=== PATIENT | female | born 1960 | race Caucasian/White ===

== ENCOUNTER 2018-12-31 05:33 | Inpatient (IN) | payer OTHER ==
[~2018-12-31 05:33] MED LIST: Gabapentin 300 MG Cap PO ONE
[2018-12-31] MEDS ORDERED: Dextrose 5%-Lactated Ringers 1,000 ML IV SCH ×2 (06:00→11:45)
[2018-12-31] MEDS ORDERED: Scopolamine 1.5 MG Transdermal Patch TOP ONE (06:00)
[2018-12-31] MEDS ORDERED: Celecoxib 200 MG Cap PO ONE (06:00)
[2018-12-31] MEDS ORDERED: cefOXitin 2 GM in Sodium Chloride 0.9% 50 ML IV ONE (06:00)
[2018-12-31] MEDS ORDERED: Acetaminophen 500 MG Tab PO ONE (06:00)
[2018-12-31] MEDS ORDERED: cefOXitin 2 GM Vial ONE (06:55)
[2018-12-31] MEDS ORDERED: Propofol 200 MG/20 ML SDV ONE (07:05)
[2018-12-31] MEDS ORDERED: Ondansetron 4 MG/2 ML SDV ONE (07:05)
[2018-12-31] MEDS ORDERED: fentaNYL 250 MCG/5 ML SDV ONE ×2 (07:05→07:43)
[2018-12-31] MEDS ORDERED: Neostigmine Methylsulfate 1 MG/ML 5 ML Syringe ONE (07:05)
[2018-12-31] MEDS ORDERED: Succinylcholine 200 MG/10 ML MDV ONE (07:05)
[2018-12-31] MEDS ORDERED: Rocuronium 50 MG/5 ML Vial ONE (07:05)
[2018-12-31] MEDS ORDERED: Dexamethasone 4 MG/ML SDV ONE (07:05)
[2018-12-31] MEDS ORDERED: Glycopyrrolate 0.2 MG/ML 5 ML MDV ONE (07:05)
[2018-12-31] MEDS ORDERED: Lactated Ringers 1,000 ML ONE (07:05)
[2018-12-31] MEDS ORDERED: Ketamine 500 MG/5 ML MDV IV SCH (07:45)
[2018-12-31] MEDS ORDERED: Ketamine 50 MG in Sodium Chloride 0.9% 49.5 ML IV SCH (07:45)
[2018-12-31] MEDS ORDERED: Lidocaine 2% 100 MG/5 ML Syringe IVPUSH SCH (08:00)
[2018-12-31] MEDS ORDERED: hydrOXYzine HCl 100 MG/2 ML SDV IM ONE (09:45)
[2018-12-31] MEDS ORDERED: fentaNYL 100 MCG/2 ML SDV ONE (10:56)
[2018-12-31] MEDS ORDERED: HYDROmorphone 0.5 MG/0.5 ML Syringe IVPUSH PRN (11:35)
[2018-12-31] MEDS ORDERED: diphenhydrAMINE 50 MG/ML SDV IVPUSH PRN (11:35)
[2018-12-31] MEDS ORDERED: Acetaminophen Soln 650 MG/20.3 ML UD Cup PO SCH (11:35)
[2018-12-31] MEDS ORDERED: Labetalol 20 MG/4 ML Syringe IVPUSH PRN (11:35)
[2018-12-31] MEDS ORDERED: Metoclopramide 10 MG/2 ML SDV IVPUSH PRN (11:35)
[2018-12-31] MEDS ORDERED: Ondansetron 4 MG/2 ML SDV IVPUSH PRN (11:35)
[2018-12-31] MEDS ORDERED: hydrOXYzine HCl 100 MG/2 ML SDV IM PRN (11:35)
[2018-12-31] MEDS ORDERED: Acetaminophen 325 MG Tab PO SCH (11:35)
[2018-12-31] MEDS ORDERED: HYDROmorphone 1 MG/ML Syringe IV PRN (11:35)
[2018-12-31] MEDS ORDERED: Acetaminophen 325 MG Tab PO PRN (12:00)
[2018-12-31] MEDS: Lidocaine 0.4%/D5W 2 GM/500 ML BAG IV SCH (12:03)
[2018-12-31] MEDS: Lactated Ringers 1,000 ML IV SCH ×3 (12:07→21:35)
[2018-12-31] MEDS: Gabapentin 250 MG/5 ML Solution ML 470 ML Bottle PO SCH ×2 (15:41→20:23)
[2018-12-31] MEDS: Heparin Sodium 5,000 Units/ML Vial SUBCUT SCH (15:41)
[2018-12-31] MEDS: cefOXitin 2 GM in Sodium Chloride 0.9% 50 ML IV SCH ×2 (15:42→21:24)
[2018-12-31] MEDS ORDERED: Pantoprazole 40 MG Vial IVPUSH SCH (16:00)
[2018-12-31] MEDS ORDERED: MVI, Adult with Vitamin K 10 ML, Thiamine 200 MG, Chromium/Copper/Mang/Selen/Zn 1 ML in... IV SCH ×4 (16:00)
[2018-12-31] MEDS: Acetaminophen Soln 650 MG/20.3 ML UD Cup PO SCH (17:12)
[2018-12-31] MEDS: Insulin Lispro 100 Unit/ML 3 ML KwikPen SUBCUT PRN ×2 (17:12→21:24)
[2019-01-01] MEDS: Acetaminophen Soln 650 MG/20.3 ML UD Cup PO SCH ×5 (00:09→23:40)
[2019-01-01] MEDS ORDERED: Iopamidol 510 MG/ML 50 ML SDV PO ONE (02:59)
[2019-01-01] MEDS: cefOXitin 2 GM in Sodium Chloride 0.9% 50 ML IV SCH ×2 (04:30→09:50)
[2019-01-01] MEDS: Heparin Sodium 5,000 Units/ML Vial SUBCUT SCH ×2 (04:34→15:07)
[2019-01-01] MEDS: Lactated Ringers 1,000 ML IV SCH (08:11)
[2019-01-01] MEDS: Celecoxib 200 MG Cap PO SCH (08:13)
[2019-01-01] MEDS: Gabapentin 250 MG/5 ML Solution ML 470 ML Bottle PO SCH ×3 (08:14→20:36)
[2019-01-01] MEDS: Aspirin 81 MG Tab.EC PO SCH (08:45)
[2019-01-01] MEDS: Losartan 50 MG Tab PO SCH (08:45)
[2019-01-01] MEDS: amLODIPine 5 MG Tab PO SCH (08:45)
[2019-01-01] MEDS: SCOPOLAMINE PATCH CHECK TOP SCH (08:46)
--- NOTE | 2019-01-01 09:59 | CRLCR ---
INDICATION: Evaluate Tamanna-en-Y. TECHNIQUE: A 30 mL Isovue-300 swallowed by the patient. Three images of the abdomen performed immediate and 15 minute and 25 minute delayed. FINDINGS: On the immediate image, oral contrast is seen in the lower esophagus and opacifying the gastric remnant. Surgical drain is in place. Oral contrast also seen in the Tamanna limb. No extravasation of contrast from the lumen of gastric gist tract. 15 minute delayed radiograph shows contrast advanced into the jejunum in the left upper quadrant. 25 minute delayed demonstrates further advancement of contrast in the jejunum which does not appear dilated. Dictated by Francisco Martinez MD @ Jan 01 2019 9:55AM Signed by Dr. Francisco Martinez @ Jan 01 2019 9:59AM
[2019-01-01] MEDS: Lidocaine 0.4%/D5W 2 GM/500 ML BAG IV SCH (11:19)
[2019-01-01] MEDS ORDERED: MVI, Adult with Vitamin K 10 ML, Thiamine 200 MG, Chromium/Copper/Mang/Selen/Zn 1 ML in... IV SCH ×4 (16:00)
[2019-01-01] MEDS ORDERED: Pantoprazole 40 MG Delayed-Release Granules 1 Packet PO SCH (16:00)
[2019-01-02] MEDS: Lactated Ringers 1,000 ML IV SCH (02:54)
[2019-01-02] MEDS: Heparin Sodium 5,000 Units/ML Vial SUBCUT SCH (03:33)
[2019-01-02] MEDS: Acetaminophen Soln 650 MG/20.3 ML UD Cup PO SCH ×2 (05:00→11:50)
[2019-01-02] MEDS ORDERED: Cyanocobalamin (Vitamin B12) 1,000 MCG/ML SDV IM ONE (09:00)
[2019-01-02] MEDS: Aspirin 81 MG Tab.EC PO SCH (09:20)
[2019-01-02] MEDS: Losartan 50 MG Tab PO SCH (09:20)
[2019-01-02] MEDS: Celecoxib 200 MG Cap PO SCH (09:20)
[2019-01-02] MEDS: Gabapentin 250 MG/5 ML Solution ML 470 ML Bottle PO SCH (09:21)
[2019-01-02] MEDS: SCOPOLAMINE PATCH CHECK TOP SCH (09:21)
[2019-01-02] MEDS: amLODIPine 5 MG Tab PO SCH (09:21)
--- NOTE | 2019-01-03 13:24 | OR ---
DATE OF PROCEDURE: 12/31/2018 SURGEON: Laureano Carpenter MD PREOPERATIVE DIAGNOSIS: Morbid obesity. POSTOPERATIVE DIAGNOSES: 1. Morbid obesity. 2. Marked hepatomegaly. 3. Paraesophageal diaphragmatic hernia. 4. Immobile small bowel requiring small bowel resection for adequate mobility of jejunojejunostomy. 5. Area of gastric devascularization, status post pouch formation. OPERATIVE PROCEDURES: 1. Diagnostic laparoscopy with: a. Laparoscopic Tamanna-en-Y gastric bypass with long limb gastroenterostomy (33006). b. Ross-Cut needle liver biopsy (09215). c. Repair of paraesophageal diaphragmatic hernia (21085). d. Small bowel resection (74885). e. Partial gastrectomy (24418). ANESTHESIA: General. POLE INSPECTOR: Neris Rice PA-C. INDICATIONS FOR PROCEDURE: This 58-year-old female presenting with longstanding morbid obesity and increasingly significant comorbidities, status post previous laparoscopic adjustable band placement, which was removed around 4 years ago. With this, she has had progressive increase in weight, as well as increasing obesity-related comorbidities. Plan is to proceed with a laparoscopic Tamanna-en-Y gastric bypass. Potential risks of procedure including bleeding, infection, leaks from various GI tract closures, problems with bowel obstruction over time, as well as possibility of cardiopulmonary, septic, or hemorrhagic complications leading to were discussed, and the patient wishes to proceed. DETAILS OF PROCEDURE: The patient was taken to the operating room, and after general endotracheal anesthesia was induced, she was placed in a lithotomy position. The abdomen was then prepped and draped. At 15 cm inferior and 5 cm left of the xiphoid process, a transverse incision was made, and the peritoneal cavity entered under direct vision with an Optiview trocar. Peritoneal cavity was inflated to 15 mmHg pressure with CO2. The laparoscope was then inserted. No underlying trocar insertion site injuries were seen. Bilateral transversus abdominis plane blocks were then placed, and 5 additional trocars were placed across the upper and mid abdomen. Initial general exploration was undertaken. This showed marked hepatomegaly with liver volume being roughly 2 to 3 times normal and was grossly fatty infiltrated. Ross-Cut needle biopsy was obtained from the left lobe of the liver. Minimal bleeding from the biopsy sites was controlled with electrocautery. With the patient having previous band placement, we initially addressed the pouch formation. The liver was retracted anteriorly. Some adhesions over the previous area of the band between the stomach and the liver were taken down with Harmonic scalpel. At that point, the patient was noted to have significant paraesophageal diaphragmatic hernia with prolapse of some omentum, along with perigastric fat in a plane anterior to the course of the esophagus. This was reduced at this point with aid of Harmonic scalpel. Peritoneum overlying this was incised and reflected downward and the diaphragmatic hernia then repaired with a series of 0 Ethibond sutures reinforced with PTFE pledgets. The lesser omentum adjacent to the greater curvature was then incised. This allowed dissection behind the stomach at the point roughly 5 cm below the gastroesophageal junction. Initial pouch formation was initiated there with black load SALINAS stapler. Dissection continued from that point toward the angle of His with series of black and purple loads being used to create the pouch. Once the pouch was satisfactorily completed, the tip of it was noted to be somewhat ischemic and some of this was then resected with additional SALINAS black loads and specimen delivered from the field. The anvil of a 25 mm EEA stapler was attached to [place] sump type tube. The latter was brought down through the mouth, taken out through a small opening in the gastric pouch, allowing the anvil likewise to be pulled down to within the gastric pouch. Attention was then taken to the formation of the jejunojejunostomy. The omentum was divided in the midline up to the level of the transverse colon, allowing identification of the small bowel at the ligament of Treitz. Small bowel was then traced out 200 cm distal to that point. The mesentery of the small bowel was then assessed to be quite thick, and it was felt that the jejunostomy with the current configuration would likely be quite tight due to the small bowel. Given this, around 10 cm of the biliopancreatic limb of the small bowel was at that point resected to facilitate mobility of the jejunojejunostomy. The mesentery underneath the bowel to be resected was divided with a SALINAS stapler, as was the bowel itself, and that specimen delivered from the field. With a now somewhat shortened biliopancreatic limb, the jejunostomy was completed with internal firings of the Endo-SALINAS 60 mm stapler. Common opening was then closed transversely with the same stapler and angles anastomosed and mesenteric defect approximated with some 0 Ethibond stitch, along with 4 mL of fibrin sealant. The divided end of the Tamanna limb was then from the mesentery for a few centimeters, which allowed an antecolic position of the Tamanna limb up to the level of the gastric pouch without significant tension. The divided end of the Tamanna limb was then opened and the main body of the EEA stapler passed several centimeters into the lumen of the small bowel, brought up the anvil, and united with it, thus creating the gastrojejunostomy. Upon removal of the stapler, double donuts of mucosa were noted within it. The small bowel was closed off with a vascular staple line. The gastrojejunostomy was reinforced with some 0 Ethibond seromuscular stitch, along with fibrin sealant. A leak test was accomplished with injection of 120 mL of air in the gastric pouch while it was submerged within cefoxitin-containing saline solution. No leaks were identified. A single [place] drain was then taken out through the left lateral trocar site and placed adjacent to the gastrojejunostomy from there up into the splenic fossa. The trocars were then sequentially removed and the peritoneal cavity deflated. Incisions were closed with some 4-0 Vicryl skin stitch, which was also used to affix the drain. The patient was taken to recovery room in satisfactory condition. Physician patient clerical assistant, Neris Rice, played an essential role in assisting in this case, helping to position the patient, retract structures as needed, as well as suturing and cutting sutures when indicated. Her presence improved patient safety and decreased operative time. Laureano Carpenter MD /[id number]
--- NOTE | 2019-01-04 08:27 | PN ---
DATE OF SERVICE: 01/01/2019 The patient is postop day #1 for laparoscopic Tamanna-en-Y gastric bypass along with diaphragmatic hernia repair. Clinically, she has done well overnight. Blood sugars are coming down. I do not think we will need to start any of the anti-diabetic medications. We will go up to a step-2 diet. The upper GI x-ray looked good with rapid emptying through the pouch and then into the small bowel. The plan will be to go up to a step-2 diet today, restart some of her pertinent oral medication and maximize activity and work with pulmonary toilet. Laureano Carpenter MD /[id number]
--- NOTE | 2019-01-04 08:39 | DISCH ---
FINAL DIAGNOSES: 1. Morbid obesity. 2. Marked hepatomegaly. 3. Paraesophageal diaphragmatic hernia. 4. Immobile small bowel mesentery requiring small bowel resection to allow adequate mobility of jejunojejunostomy. 5. Stomach devascularization, status post pouch formation secondary to scarring from previous lap band. 6. History of depression. 7. History of hypertension. 8. History of type 2 diabetes mellitus. 9. Hypercholesterolemia. 10.Elevated liver enzymes: 11.Obstructive sleep apnea. OPERATIVE PROCEDURES: Done on 12/31/2018, diagnostic laparoscopy with: 1. Laparoscopic Tamanna-en-Y gastric bypass with long limb gastroenterostomy. 2. Ross-Cut needle liver biopsy. 3. Repair of paraesophageal diaphragmatic hernia. 4. Small bowel resection to facilitate adequate mobility of the jejunojejunostomy. 5. Partial gastrectomy. SUMMARY: This is a 58-year-old, presenting with long-standing morbid obesity with increasingly significant comorbidities. After preoperative evaluation and discussion, she wished to proceed with a gastric bypass procedure. This was done on the date of admission. The patient is status post previous lap band, and she did have a fair bit of scarring around the stomach, but an adequate pouch was able to be formed. There was an area of devascularization of the pouch from initial construction, which was resected back to the level of adequate blood supply. Postoperatively, no major problems were noted. She had been off antidiabetic medication, specifically off the metformin and Victoza since surgery, and blood sugars were running in the low to mid 100 range, so the issue of her diabetes was trending toward going into remission. Otherwise, the patient was started on a step 2 diet, which she will stay on until the first appointment, which will be with Neris Rice [facility]3], on 01/10/2019 at 11:30. She will be instructed to record the blood sugars on a t.i.d. to q.i.d. basis and bring that log of blood sugars to her first appointment. MEDICATIONS ON DISCHARGE: Will include omeprazole 20 mg daily, which she is instructed to stop after discontinuing the Celebrex, will start on 200 mg p.o. daily. She will be holding the Victoza and metformin. She will continue amlodipine 2.5 mg daily, rosuvastatin 20 mg daily, aspirin 81 mg p.o. daily, and Celebrex 200 mg p.o. daily with the latter being able to be stopped when she feels comfortable off of that. Also, should be on Tylenol 650 mg p.o. q.4 hours p.r.n. pain and a prescription for Dilaudid 2 to 4 mg p.o. q.4 hours p.r.n. pain will be given #30. She is instructed to hold her vitamins and other supplements until after the first appointment.
== END 2019-01-02 12:13 | disposition home or self-care (01) | DRG 621 ==
LOC: JP.SDSSCHI 05:33 → JP.SDS 05:34 → EDSTATUS 09:00 → JP.MS 09:40
PROVIDERS: ADMIT Surgery; ATTEND Surgery
PROC: 0BQT4ZZ Repair Diaphragm, Percutaneous Endoscopic Approach (ICD-10-PCS; principal; 2018-12-31)
PROC: 0D164ZA Bypass Stomach to Jejunum, Percutaneous Endoscopic Approach (ICD-10-PCS; 2018-12-31)
PROC: 0FB24ZX Excision of Left Lobe Liver, Percutaneous Endoscopic Approach, Diagnostic (ICD-10-PCS; 2018-12-31)
PROC: 0DB84ZZ Excision of Small Intestine, Percutaneous Endoscopic Approach (ICD-10-PCS; 2018-12-31)
PROC: 0DB64ZZ Excision of Stomach, Percutaneous Endoscopic Approach (ICD-10-PCS; 2018-12-31)
DX: E66.01 Morbid (severe) obesity due to excess calories (principal); R16.0 Hepatomegaly, not elsewhere classified; K44.9 Diaphragmatic hernia without obstruction or gangrene; K59.8 Other specified functional intestinal disorders; F32.9 Major depressive disorder, single episode, unspecified; I10 Essential (primary) hypertension; E11.9 Type 2 diabetes mellitus without complications; E78.00 Pure hypercholesterolemia, unspecified; R74.8 Abnormal levels of other serum enzymes; G47.33 Obstructive sleep apnea (adult) (pediatric); K31.9 Disease of stomach and duodenum, unspecified; Z99.81 Dependence on supplemental oxygen; Z79.84 Long term (current) use of oral hypoglycemic drugs; Z79.899 Other long term (current) drug therapy; Z88.8 Allergy status to other drugs, medicaments and biological substances; Z68.39 Body mass index [BMI] 39.0-39.9, adult; E78.5 Hyperlipidemia, unspecified
CPT/HCPCS: 36415; 74240; 82962; 86850; 86900; 86901; 88305; 88307; 88313; 88342; 94762; A9270-GY; C9113; J0171; J0330; J0694; J1100; J1170; J1644; J1815; J1815-GY; J2001; J2405; J2704; J2710; J2795; J3010; J3410; J3411; J3420; J3490; J7030; J7042; J7050; J7120; Q9966

== ENCOUNTER 2020-03-05 17:51 | Emergency (ER) | payer OTHER ==
[2020-03-05] MEDS ORDERED: MVI, Adult with Vitamin K 10 ML, Thiamine 100 MG, Folic Acid 1 MG, Magnesium Sulfate 3 ... IV SCH ×5 (19:00)
--- NOTE | 2020-03-05 19:25 | EDM.PDOC ---
ED HPI GENERAL MEDICAL PROBLEM - General Chief Complaint: General Stated Complaint: LAB RESULTS CONCERNS Time Seen by Provider: 03/05/20 18:35 Source of Information: Reports: Patient, Family History Limitations: Reports: No Limitations - History of Present Illness INITIAL COMMENTS - FREE TEXT/NARRATIVE: 59-year-old female who is a chronic alcoholic, stopped drinking 5 days ago and had significant withdrawal symptoms for the past 5 days. She was given some lorazepam to help her with symptoms at home by her primary provider. She had a follow-up visit in the clinic today, still shaky and has had nausea, dry heaves and diarrhea but mental status is improving. Some labs were done and she was sent home, she was out shopping when she was called and told to come to the emergency room because her potassium was "2.0". She has no palpitations, chest pain, shortness of breath but is still fairly weak. Onset: Unknown/Unsure (Last potassium 3 weeks ago was 3.4) Associated Symptoms: Reports: Malaise, Nausea/Vomiting, Weakness, Other (Some diarrhea as well as alcohol withdrawal) - Related Data Allergies Allergy/AdvReac Type Severity Reaction Status Date / Time meperidine [From Demerol] Allergy Severe Other Verified 03/05/20 18:11 Home Meds: Home Meds Aspirin [Children's Aspirin] 81 mg PO DAILY 12/29/18 [History] B-Complex with Vitamin C [Support-500] 1 tab PO BEDTIME 12/29/18 [History] Cholecalciferol (Vitamin D3) [Vitamin D3] 5,000 unit PO DAILY 12/29/18 [History] Cyanocobalamin (Vitamin B-12) [Vitamin B-12] 1,000 mcg SL DAILY 12/29/18 [History] Losartan Potassium [Cozaar] 100 mg PO DAILY 12/29/18 [History] Multivitamin with Minerals [Multiple Vitamin] 1 tab PO BEDTIME 12/29/18 [History] Omeprazole 20 mg PO BID 12/29/18 [History] Rosuvastatin Calcium 10 mg PO DAILY 12/29/18 [History] amLODIPine Besylate [Norvasc] 2.5 mg PO DAILY 12/29/18 [History] FLUoxetine HCl [Fluoxetine HCl] 40 mg PO DAILY 03/05/20 [History] LORazepam [Ativan] 0.5 mg PO QID 03/05/20 [History] Past Medical History HEENT History: Reports: None Cardiovascular History: Reports: High Cholesterol, Hypertension Respiratory History: Reports: Sleep Apnea Gastrointestinal History: Reports: GERD, Hemorrhoids Genitourinary History: Reports: None 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: Psychiatric History: Reports: Addiction, Anxiety, Depression Endocrine/Metabolic History: Reports: Diabetes, Type II, Obesity/BMI 30+ - Infectious Disease History Infectious Disease History: Reports: Chicken Pox, Herpes - Past Surgical History HEENT Surgical History: Reports: Oral Surgery Cardiovascular Surgical History: Reports: None Respiratory Surgical History: Reports: None GI Surgical History: Reports: Colonoscopy, Other (See Below) Other GI Surgeries/Procedures: lap band insertion and removal Female Surgical History: Reports: Tubal Ligation Endocrine Surgical History: Reports: None Dermatological Surgical History: Reports: None Social & Family History - Family History Cardiac: Reports: Angina, Blood Clots/VTE/DVT, CAD, Heart Failure, SD : Reports: Renal Disease/Insufficiency Musculoskeletal: Reports: Arthritis Neurological: Reports: CVA Endocrine/Metabolic: Reports: IDDM - Tobacco Use Tobacco Use Status *Q: Former Tobacco User Used Tobacco, but Quit: Yes Month/Year Tobacco Last Used: 2006 - Caffeine Use Caffeine Use: Reports: None - Alcohol Use Date of Last Drink: 02/29/20 - Recreational Drug Use Recreational Drug Use: Yes Recreational Drug Type: Reports: Marijuana/Hashish Recreational Drug Use Frequency: Rarely ED ROS GENERAL - Review of Systems Review Of Systems: See Below Constitutional: Reports: Malaise, Decreased Appetite, Weight Loss HEENT: Denies: Throat Pain, Vision Change Respiratory: Denies: Shortness of Breath Cardiovascular: Denies: Chest Pain, Palpitations GI/Abdominal: Reports: Diarrhea, Decreased Appetite, Nausea, Vomiting. Denies: Abdominal Pain, Hematemesis, Hematochezia Skin: Reports: No Symptoms. Denies: Jaundice Neurological: Reports: Confusion, Dizziness, Weakness, Other (Persistent tremor while her withdrawal) Psychiatric: Reports: No Symptoms ED EXAM, GENERAL - Physical Exam Exam: See Below Exam Limited By: No Limitations General Appearance: Alert, Anxious Eye Exam: Bilateral Eye: Normal Inspection Respiratory/Chest: No Respiratory Distress, Lungs Clear Cardiovascular: Regular Rate, Rhythm. No: Tachycardia GI/Abdominal: Soft, Other (Mild discomfort to palpation across the upper abdomen but no focal guarding or rebound) Neurological: Alert, Oriented Psychiatric: Anxious Skin Exam: Warm, Dry, Other (Somewhat netta complexion) Course - Vital Signs Last Recorded V/S: Last Vital Signs Temp 96.6 F L 03/05/20 18:19 Pulse 69 03/06/20 02:30 Resp 16 03/06/20 01:31 BP 117/62 03/06/20 02:30 Pulse Ox 97 03/06/20 00:21 - Orders/Labs/Meds Labs: Laboratory Tests 03/05/20 03/06/20 03/06/20 Range/Units 19:05 00:15 03:04 Sodium 135 L (140-148) mmol/L Potassium 1.7 L* 2.2 L* 2.6 L* (3.6-5.2) mmol/L Chloride 92 L (100-108) mmol/L Carbon Dioxide 33 H (21-32) mmol/L Anion Gap 11.7 (5.0-14.0) mmol/L BUN 8 (7-18) mg/dL Creatinine 0.5 L (0.6-1.0) mg/dL Est Cr Clr Drug Dosing 112.58 mL/min Estimated GFR (MDRD) > 60 (>60) Glucose 135 H (74-106) mg/dL Calcium 9.7 (8.5-10.1) mg/dL Meds: Medications Discontinued Medications Generic Name Dose Route Start Last Admin Trade Name Freq PRN Reason Stop Dose Admin Multivitamins/Minerals 10 ml/ 1,017.2 mls @ 1,000 mls/hr 03/05/20 19:00 03/05/20 19:41 Thiamine HCl 100 mg/ Folic IV 1,000 mls/hr Acid 1 mg/ Magnesium Sulfate 3 ASDIRECTED REDD Administration gm/ Sodium Chloride Potassium Chloride 20 meq/ 100 mls @ 50 mls/hr 03/05/20 19:40 03/05/20 19:51 Premix IV 03/05/20 21:39 50 mls/hr ONETIME ONE Administration Potassium Chloride 20 meq/ 100 mls @ 50 mls/hr 03/05/20 21:48 03/05/20 22:03 Premix IV 03/05/20 23:47 50 mls/hr ONETIME ONE Administration Potassium Chloride 20 meq/ 100 mls @ 50 mls/hr 03/06/20 00:34 03/06/20 00:43 Premix IV 03/06/20 02:33 50 mls/hr ONETIME ONE Administration Potassium Chloride 40 meq 03/05/20 19:27 03/05/20 19:42 Klor-Con M20 PO 03/05/20 19:28 40 meq ONETIME ONE Administration Potassium Chloride 40 meq 03/06/20 00:34 03/06/20 00:43 Klor-Con M20 PO 03/06/20 00:35 40 meq ONETIME ONE Administration - Re-Assessments/Exams Free Text/Narrative Re-Assessment/Exam: 03/05/20 21:27 BMP was repeated for accuracy and potassium is now 1.7. An IV was started, a banana bag was initiated along with 20 mEq of potassium chloride. She was also given 20 mg of oral potassium. We will continue replacement and checking her potassium every few hours until stabilized. 03/05/20 22:58 Patient tolerated the first 20 mEq of IV potassium, banana bag, and oral potassium without problem. She ate a full meal. Second 20 mEq rider will be given IV and then her potassium will be checked at that time. 03/06/20 00:33 Midnight potassium level was 2.2. Patient was given an additional 40 meq of oral potassium, and a third 20 mEq rider was started. Level will be checked at 3 AM. 03/06/20 03:28 Potassium at 3 AM was 2.6. Patient wanted to be discharged. She was written a prescription for 40 mEq to take daily for up to 14 days. She is going to avoid alcohol intake and recheck her potassium at the clinic in 3 to 4 days. She will return to the emergency room if worsening such as increased nausea or vomiting or diarrhea. Departure - Departure Time of Disposition: 03:41 Disposition: Home, Self-Care 01 Clinical Impression: Hypokalemia Alcohol withdrawal Qualifiers: Complication of substance-induced condition: with unspecified complication Qualified Code(s): F10.239 - Alcohol dependence with withdrawal, unspecified - Discharge Information Instructions: Hypokalemia Referrals: Arabella Lima MD [Primary Care Provider] - Forms: ED Department Discharge Care Plan Goals: Continue any current medications as well as 40 mEq of potassium daily with your first meal. Recheck your potassium at the clinic in 3 to 4 days. Return sooner if worsening such as increased nausea or vomiting or diarrhea, palpitations or difficulty breathing. Sepsis Event Note (ED) - Evaluation Sepsis Screening Result: No Definite Risk - Focused Exam Vital Signs: Vital Signs Temp Pulse Resp BP Pulse Ox 03/06/20 02:30 69 117/62 03/06/20 01:31 78 16 126/65 03/06/20 00:21 80 16 143/83 H 97 03/05/20 23:30 76 145/83 H 03/05/20 22:15 79 17 146/86 H 95 03/05/20 21:46 79 17 132/76 95 03/05/20 21:15 94 137/83 03/05/20 20:45 98 17 120/50 L 96 03/05/20 20:15 89 140/82 03/05/20 19:15 100 130/76 03/05/20 18:45 95 16 133/74 97 03/05/20 18:19 96.6 F L 75 16 135/77 100 03/05/20 18:17 96.6 F L 75 16 135/77 100
[2020-03-05] MEDS ORDERED: Potassium Chloride 10% 20 MEQ/15 ML Soln 15 ML UD Cup PO ONE (19:27)
[2020-03-05] MEDS ORDERED: Potassium Chloride 20 MEQ Tab.ER PO ONE (19:27)
[2020-03-05] MEDS ORDERED: Potassium Chloride 20 MEQ in Premix Bag 1 BAG IV ONE ×2 (19:40→21:48)
[2020-03-06] MEDS ORDERED: Potassium Chloride 20 MEQ Tab.ER PO ONE (00:34)
[2020-03-06] MEDS ORDERED: Potassium Chloride 20 MEQ in Premix Bag 1 BAG IV ONE (00:34)
== END 2020-03-06 03:42 | disposition home or self-care (01) ==
LOC: JP.ED 17:51
DX: F10.239 Alcohol dependence with withdrawal, unspecified (principal); E87.6 Hypokalemia; I10 Essential (primary) hypertension; E78.00 Pure hypercholesterolemia, unspecified; K21.9 Gastro-esophageal reflux disease without esophagitis; F41.9 Anxiety disorder, unspecified; F32.9 Major depressive disorder, single episode, unspecified; E11.9 Type 2 diabetes mellitus without complications; E66.9 Obesity, unspecified; Z68.23 Body mass index [BMI] 23.0-23.9, adult; Z87.891 Personal history of nicotine dependence; Z88.5 Allergy status to narcotic agent; Z79.899 Other long term (current) drug therapy; Z79.82 Long term (current) use of aspirin
CPT/HCPCS: 36415; 80048; 84132; 96365; 96366; 96367; 96368; 99284; A9270; J3411; J3475; J3480; J7030; J3490

== ENCOUNTER 2021-04-01 20:31 | Emergency (ER) | payer OTHER ==
[2021-04-01 22:12] LABS: CORONAVIRUS COVID-19 NAA NEGATIVE (NEGATIVE)
--- NOTE | 2021-04-01 22:27 | EDM.PDOCBH ---
ED HPI GENERAL MEDICAL PROBLEM - General Chief Complaint: Drug or Alcohol Abuse Stated Complaint: [facility] Time Seen by Provider: 04/01/21 21:15 Source of Information: Reports: Patient, Other (Patient is here with a friend) History Limitations: Reports: Intoxication - History of Present Illness INITIAL COMMENTS - FREE TEXT/NARRATIVE: 60-year-old female with a history of chronic alcohol abuse and alcoholism, presents to be cleared for detox. She did go through treatment 1 year ago and was sober for 2 months but has been drinking almost daily since that time. She is physically stable, has not had any hematemesis, fevers or chills or diarrhea. She is just ready to get better again. Onset: Unknown/Unsure Duration: Chronic Associated Symptoms: Reports: No Other Symptoms - Related Data Allergies Allergy/AdvReac Type Severity Reaction Status Date / Time meperidine [From Demerol] Allergy Severe Other Verified 04/01/21 21:04 Home Meds: Home Meds Aspirin [Children's Aspirin] 81 mg PO DAILY 12/29/18 [History] B-Complex with Vitamin C [Support-500] 1 tab PO BEDTIME 12/29/18 [History] Cholecalciferol (Vitamin D3) [Vitamin D3] 5,000 unit PO DAILY 12/29/18 [History] Cyanocobalamin (Vitamin B-12) [Vitamin B-12] 1,000 mcg SL DAILY 12/29/18 [History] Losartan Potassium [Cozaar] 100 mg PO DAILY 12/29/18 [History] Multivitamin with Minerals [Multiple Vitamin] 1 tab PO BEDTIME 12/29/18 [History] Omeprazole 20 mg PO BID 12/29/18 [History] Rosuvastatin Calcium 10 mg PO DAILY 12/29/18 [History] amLODIPine Besylate [Norvasc] 2.5 mg PO DAILY 12/29/18 [History] FLUoxetine HCl [Fluoxetine HCl] 40 mg PO DAILY 03/05/20 [History] Fluticasone Propionate [Flonase] 2 spray IH DAILY 04/01/21 [History] Naltrexone 1 tab PO DAILY 04/01/21 [History] hydrOXYzine HCL [Hydroxyzine HCl] 1 tab PO QID PRN 04/01/21 [History] Past Medical History HEENT History: Reports: None, Impaired Vision Cardiovascular History: Reports: High Cholesterol, Hypertension Respiratory History: Reports: Sleep Apnea Gastrointestinal History: Reports: GERD, Hemorrhoids Genitourinary History: Reports: None [employer]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: Psychiatric History: Reports: Addiction, Anxiety, Depression Endocrine/Metabolic History: Reports: Diabetes, Type II, Obesity/BMI 30+ Hematologic History: Reports: B12 Deficiency, Folic Acid - Infectious Disease History Infectious Disease History: Reports: Chicken Pox, Herpes - Past Surgical History HEENT Surgical History: Reports: Oral Surgery Cardiovascular Surgical History: Reports: None Respiratory Surgical History: Reports: None GI Surgical History: Reports: Bariatric Procedure, Colonoscopy, Other (See Below) Other GI Surgeries/Procedures: lap band insertion and removal Female Surgical History: Reports: Tubal Ligation Endocrine Surgical History: Reports: None Dermatological Surgical History: Reports: None Social & Family History - Family History Cardiac: Reports: Angina, Blood Clots/VTE/DVT, CAD, Heart Failure, [place] : Reports: Renal Disease/Insufficiency Musculoskeletal: Reports: Arthritis Neurological: Reports: CVA Endocrine/Metabolic: Reports: IDDM - Tobacco Use Tobacco Use Status *Q: Never Tobacco User - Caffeine Use Caffeine Use: Reports: None - Alcohol Use Days Per Week of Alcohol Use: 7 Number of Drinks Per Day: 5 Total Drinks Per Week: 35 - Recreational Drug Use Recreational Drug Use: No ED ROS GENERAL - Review of Systems Review Of Systems: See Below Constitutional: Denies: Fever, Chills, Malaise HEENT: Reports: No Symptoms Respiratory: Denies: Shortness of Breath Cardiovascular: Denies: Chest Pain GI/Abdominal: Reports: No Symptoms Skin: Reports: No Symptoms Neurological: Denies: Headache Psychiatric: Reports: No Symptoms ED EXAM, BEHAVIORAL HEALTH - Physical Exam Exam: See Below Exam Limited By: No Limitations General Appearance: Alert, No Apparent Distress Eye Exam: Bilateral Eye: Normal Inspection Head: Atraumatic Neck: Supple, Non-Tender Respiratory/Chest: No Respiratory Distress, Lungs Clear Cardiovascular: Regular Rate, Rhythm. No: Tachycardia Extremities: Normal Inspection Neurological: Alert, No Motor/Sensory Deficits, Oriented x 3 Psychiatric: Alert, Other (Patient is intoxicated but very cooperative) Skin Exam: Warm, Dry (No jaundice) COURSE, BEHAVIORAL HEALTH COMP - Course Vital Signs: Last Vital Signs Temp 97.7 F 04/01/21 21:08 Pulse 88 04/01/21 21:08 Resp 18 04/01/21 21:08 BP 155/85 H 04/01/21 21:08 Pulse Ox 97 04/01/21 21:08 Orders, Labs, Meds: Active Orders 24 hr Category Date Time Status DRUG SCREEN, URINE [URCHEM] Stat Lab 04/01/21 22:58 Ordered Laboratory Tests 04/01/21 04/01/21 04/01/21 Range/Units 21:31 21:31 21:31 WBC 4.8 (4.5-11.0) K/uL RBC 4.40 (3.30-5.50) M/uL Hgb 12.5 (12.0-15.0) g/dL Hct 37.4 (36.0-48.0) % MCV 85 (80-98) fL MCH 28 (27-31) pg MCHC 33 (32-36) % Plt Count 262 (150-400) K/uL Neut % (Auto) 43.4 (36-66) % Lymph % (Auto) 42.7 (24-44) % Vance % (Auto) 11.1 H (2-6) % Eos % (Auto) 1.3 L (2-4) % Baso % (Auto) 1.5 H (0-1) % Sodium 144 (140-148) mmol/L Potassium 3.4 L (3.6-5.2) mmol/L Chloride 105 (100-108) mmol/L Carbon Dioxide 26 (21-32) mmol/L Anion Gap 16.4 H (5.0-14.0) mmol/L BUN 6 L (7-18) mg/dL Creatinine 0.6 (0.6-1.0) mg/dL Est Cr Clr Drug Dosing TNP Estimated GFR (MDRD) > 60 (>60) Glucose 80 (74-106) mg/dL Calcium 8.8 (8.5-10.1) mg/dL Ethyl Alcohol 323 mg/dL Influenza Type A RNA (NEGATIVE) RSV RNA (INAAT) (NEGATIVE) Influenza Type B RNA (NEGATIVE) SARS-CoV-2 RNA (YANN) (NEGATIVE) 04/01/21 Range/Units 21:31 WBC (4.5-11.0) K/uL RBC (3.30-5.50) M/uL Hgb (12.0-15.0) g/dL Hct (36.0-48.0) % MCV (80-98) fL MCH (27-31) pg MCHC (32-36) % Plt Count (150-400) K/uL Neut % (Auto) (36-66) % Lymph % (Auto) (24-44) % Vance % (Auto) (2-6) % Eos % (Auto) (2-4) % Baso % (Auto) (0-1) % Sodium (140-148) mmol/L Potassium (3.6-5.2) mmol/L Chloride (100-108) mmol/L Carbon Dioxide (21-32) mmol/L Anion Gap (5.0-14.0) mmol/L BUN (7-18) mg/dL Creatinine (0.6-1.0) mg/dL Est Cr Clr Drug Dosing Estimated GFR (MDRD) (>60) Glucose (74-106) mg/dL Calcium (8.5-10.1) mg/dL Ethyl Alcohol mg/dL Influenza Type A RNA Negative (NEGATIVE) RSV RNA (INAAT) Negative (NEGATIVE) Influenza Type B RNA Negative (NEGATIVE) SARS-CoV-2 RNA (YANN) Negative (NEGATIVE) Re-Assessment/Re-Exam: EtOH was 0.323, CBC was normal and extended chemistry profile also reassuring. Rapid Covid test was negative. Patient is stable for detox. Departure - Departure Time of Disposition: 22:46 Disposition: DC/Tfer to Other 70 Clinical Impression: Alcohol abuse - Discharge Information Instructions: Alcohol Use Disorder Referrals: Arabella Lima MD [Primary Care Provider] - Forms: ED Department Discharge Care Plan Goals: Patient is stable for detox and will be transferred to [facility] by a friend. She is planning on getting her regular medications and bringing them with to [place] Sepsis Event Note (ED) - Evaluation Sepsis Screening Result: No Definite Risk - Focused Exam Vital Signs: Vital Signs Temp Pulse Resp BP Pulse Ox 04/01/21 21:08 97.7 F 88 18 155/85 H 97 04/01/21 21:07 97.7 F 88 18 155/85 H 97 - My Orders Last 24 Hours: My Active Orders 04/01/21 22:58 DRUG SCREEN, URINE [URCHEM] Stat - Assessment/Plan Last 24 Hours: My Active Orders 04/01/21 22:58 DRUG SCREEN, URINE [URCHEM] Stat
== END 2021-04-01 22:55 | disposition other institution (70) ==
LOC: JP.ED 20:31
DX: F10.10 Alcohol abuse, uncomplicated (principal); E78.00 Pure hypercholesterolemia, unspecified; I10 Essential (primary) hypertension; K21.9 Gastro-esophageal reflux disease without esophagitis; E11.9 Type 2 diabetes mellitus without complications; E66.9 Obesity, unspecified; Z68.21 Body mass index [BMI] 21.0-21.9, adult; Z88.5 Allergy status to narcotic agent; Z79.82 Long term (current) use of aspirin; Z79.899 Other long term (current) drug therapy; Z20.822 Contact with and (suspected) exposure to COVID-19; Y90.5 Blood alcohol level of 100-119 mg/100 ml
CPT/HCPCS: 0241U; 36415; 80048; 80307; 85025; 99284

== ENCOUNTER 2023-12-19 04:29 | Emergency (ER) | payer OTHER ==
[2023-12-19 04:58] LABS: BASOPHILS ABSOLUTE AUTO 0.07 K/uL (0.00-0.10); BASOPHILS PERCENT AUTO 1.2 % (0.1-1.3); EOSINOPHILS ABSOLUTE AUTO 0.05 K/uL (0.00-0.40); EOSINOPHILS PERCENT AUTO 0.8 % (0.0-5.4); HEMATOCRIT 38.3 % (34.3-46.0); HEMOGLOBIN 12.7 g/dL (11.2-15.5); IMMATURE GRAN ABSOLUTE AUTO 0.03 K/uL (0.00-0.23); IMMATURE GRAN PERCENT AUTO 0.5 % (0.0-0.7); LYMPHOCYTES ABSOLUTE AUTO 1.83 K/uL (0.8-3.3); LYMPHOCYTES PERCENT AUTO 30.7 % (11.4-47.7); MEAN CORPUSCULAR HEMOGLOBIN 26.7 pg (31.6-35.5); MEAN CORPUSCULAR HGB CONC 33.2 g/dL (31.6-35.5); MEAN CORPUSCULAR VOLUME 80.6 fL (81.4-99.0); MONOCYTES ABSOLUTE AUTO 0.45 K/uL (0.20-0.90); MONOCYTES PERCENT AUTO 7.6 % (3.3-12.6); NEUTROPHILS ABSOLUTE AUTO 3.53 K/uL (1.0-7.6); NEUTROPHILS PERCENT AUTO 59.2 % (40.0-78.1); PLATELET COUNT,PLT 222 K/uL (130-375); RED BLOOD CELL COUNT 4.75 M/uL (3.77-5.24)
[2023-12-19 05:07] LABS: ALANINE AMINOTRANSFERASE,ALT 27 U/L (12-78); ALBUMIN 4.5 g/dL (3.4-5.0); ALKALINE PHOSPHATASE 121 U/L (46-116); ASPARTATE AMNIOTRANSFERASE,AST 43 U/L (15-37); BLOOD UREA NITROGEN,BUN 9 mg/dL (7-18); CALCIUM 9.1 mg/dL (8.5-10.1); CARBON DIOXIDE,CO2 18 mmol/L (21-32); CHLORIDE,CL 99 mmol/L (100-108); CREATININE 0.7 mg/dL (0.6-1.0); ESTIMATED GFR 98 mL/min (>60); GLUCOSE RANDOM 123 mg/dL (74-106); POTASSIUM,K 3.6 mmol/L (3.6-5.2); PROTEIN TOTAL,TP 8.1 g/dL (6.4-8.2); SODIUM,NA 140 mmol/L (140-148)
[2023-12-19 05:08] LABS: A/G RATIO 1.3 (1.2-2.2); ANION GAP 26.6 mmol/L (5.0-14.0)
== END 2023-12-19 08:11 | disposition home or self-care (01) ==
LOC: JP.ED 04:29
DX: F10.120 Alcohol abuse with intoxication, uncomplicated (principal); E11.9 Type 2 diabetes mellitus without complications; E66.9 Obesity, unspecified; E78.00 Pure hypercholesterolemia, unspecified; I10 Essential (primary) hypertension; Z79.82 Long term (current) use of aspirin; Z79.899 Other long term (current) drug therapy; Z88.8 Allergy status to other drugs, medicaments and biological substances
CPT/HCPCS: 36415; 80053; 80307; 83690; 85025; 99284; U0002